=== PATIENT | male | born 1955 | race African-American/Black ===

== ENCOUNTER 2018-02-07 04:33 | Emergency (ER) | payer BC, OTHER ==
[~2018-02-07] VITALS: Ht 185.4 cm; Wt 133.8 kg
[~2018-02-07 04:33] MED LIST: GABA300C10 PO
[2018-02-07] MEDS ORDERED: KETOROLAC TROMETH 60MG/2ML VIAL IM ONE (08:00)
[2018-02-07 08:20] VITALS: BP 126/78
== END 2018-02-07 08:35 | disposition home or self-care (01) ==
LOC: EDBD 04:33 → ER 04:33
DX: G89.29 Other chronic pain (principal); M54.5 Low back pain; J45.909 Unspecified asthma, uncomplicated; Z91.041 Radiographic dye allergy status
CPT/HCPCS: 96372; 99283; J1885

== ENCOUNTER 2021-02-21 19:38 | Emergency (ER) | payer OTHER ==
[~2021-02-21] VITALS: Ht 195.6 cm; Wt 60.8 kg
[2021-02-21] MEDS ORDERED: ONDANSETRON HCL 4 MG/2 ML VIAL IV ONE (21:15)
[2021-02-21] MEDS ORDERED: ASPirin 81 mg TAB PO ONE (21:15)
[2021-02-21] MEDS ORDERED: MORPHINE SULFATE 4 MG/ML SYR/VIAL IV ONE (21:15)
[2021-02-21 22:43] LABS: Basophils # (auto) 0 10 ^3/uL (0-0.2); Basophils % (auto) 0.3 % (0.0-2.0); Eosinophils # (auto) 0.3 10 ^3/uL (0-0.8); Eosinophils % (auto) 4.7 % (0.0-7.0); Hematocrit 42.9 % (41.0-53.0); Hemoglobin 14.5 g/dL (13.5-17.5); Lymphocytes # (auto) 1.3 10 ^3/uL (0.4-5.4); Lymphocytes % (auto) 20.3 % (10.0-50.0); Mean Corpuscular Hgb Conc. 33.9 g/dL (32.0-36.0); Mean Corpuscular Volume 85.6 fL (80.0-100.0); Monocytes % (auto) 15.1 % (0.0-12.0); Neutrophils # (auto) 3.9 10 ^3/uL (1.6-8.6); Neutrophils % (auto) 59.6 % (37.0-80.0); Nucleated Red Blood Cells % 0.1 %; Red Blood Cells 5.01 10^6/uL (4.5-5.90); Red Cell Distribution Width 14.8 % (11.8-14.3); White Blood Cell 6.6 10^3/uL (4.4-10.8)
[2021-02-21 22:58] LABS: INR 0.98 (0.9-1.15); Partial Thromboplastin Time 28.5 sec (23.0-31.2)
[2021-02-21 23:00] LABS: Albumin 3.5 g/dL (3.4-5.0); Anion Gap 5 (5-15); Blood Urea Nitrogen 13 mg/dL (7-18); Calcium 8.6 mg/dL (8.5-10.1); Carbon Dioxide 24 mmol/L (21-32); Chloride 113 mmol/L (98-107); Glucose 94 mg/dL (74-106); Magnesium 2.3 mg/dL (1.6-2.6); Potassium 4.1 mmol/L (3.5-5.1); Sodium 142 mmol/L (136-145)
[2021-02-21 23:08] LABS: Alanine Aminotransferase 32 U/L (16-61); Alkaline Phosphatase 92 U/L (45-117); Aspartate Aminotransferase 28 U/L (15-37); BUN/Creatinine Ratio 12.1; Bilirubin, Total 0.4 mg/dL (0.2-1.0); GFR African American 89 mL/min; GFR Non-African American 74 mL/min; Total Protein 7.3 g/dL (6.4-8.2)
[2021-02-22 01:00] VITALS: BP 104/71
[2021-02-22] MEDS ORDERED: ACETAMINOPHEN 325 MG TAB PO ONE (01:45)
== END 2021-02-22 02:57 | disposition home or self-care (01) ==
LOC: ER 19:38 → EDBD 19:38 → ER 02-22 02:55
DX: R07.89 Other chest pain (principal); J45.909 Unspecified asthma, uncomplicated; Z91.041 Radiographic dye allergy status; Z98.890 Other specified postprocedural states
CPT/HCPCS: 36415; 71045; 80053; 83735; 83880; 84443; 84484; 85025; 85049; 85379; 85610; 85730; 93005; 96374; 96375; 99285; J2270; J2405